=== PATIENT | female | born 1990 ===

== ENCOUNTER 2017-08-03 08:12 | Inpatient (IN) | payer BC ==
[2017-08-03] MEDS ORDERED: Oxytocin/Lactated Ringers 10 UNIT/1,000 ML BAG IV ONE (08:59)
[2017-08-03] MEDS ORDERED: Ondansetron 4 MG/2 ML SDV IVPUSH PRN (09:27)
[2017-08-03] MEDS ORDERED: Nalbuphine 20 MG/1 ML Amp IVPUSH PRN (09:27)
[2017-08-03] MEDS ORDERED: Sodium Chloride 0.9% 10 ML Syringe FLUSH PRN (09:27)
[2017-08-03] MEDS ORDERED: Oxytocin/Lactated Ringers 10 UNIT/1,000 ML BAG IV SCH ×2 (09:30)
[2017-08-03] MEDS ORDERED: Lactated Ringers 1,000 ML IV SCH ×2 (09:30)
[2017-08-03] MEDS ORDERED: fentaNYL 100 MCG/2 ML SDV EPIDUR PRN (10:11)
[2017-08-03] MEDS ORDERED: ePHEDrine 50 MG/ML SDV IVPUSH PRN (10:11)
[2017-08-03] MEDS ORDERED: diphenhydrAMINE 50 MG/ML SDV IVPUSH PRN (10:11)
[2017-08-03] MEDS ORDERED: Bupivacaine/fentaNYL/NS 100 ML Bag EPIDUR SCH (10:15)
--- NOTE | 2017-08-03 10:39 | PCM.LDHP ---
L&D History of Present Illness - General Date of Service: 08/03/17 Admit Problem/Dx: Patient Status Order with Admit Dx/Problem 08/03/17 09:28 Patient Status [ADT] Routine Admission Diagnosis/Problem Admission Diagnosis/Problem Supervision of normal Source of Information: Patient History Limitations: Reports: No Limitations - History of Present Illness Introduction:: Patient is a 26 y/o at 39 1/7 wks who presents for elective IOL. Patient doing well today. No patterned contraction. No signs of labor. No other concerns. - Related Data Allergies/Adverse Reactions: Allergies Allergy/AdvReac Type Severity Reaction Status Date / Time No Known Allergies Allergy Verified 08/03/17 08:53 Home Medications: Home Meds Vits #93/Iron Fum/FA [ Formula Tablet] 1 tab PO DAILY 08/03/17 [History] Past Medical History Genitourinary History: Reports: Renal Calculus Other Genitourinary History: hx of kidney stent placement for kidney stones [employer] History: Reports: : 3 Para: 2 LMP (Approximate): Psychiatric History: Reports: Anxiety Hematologic History: Reports: Other (See Below) (Heterozygous Factor V Leiden) - Past Surgical History Female Surgical History: Reports: Kidney stone extraction Social & Family History - Family History Family Medical History: Noncontributory - Tobacco Use Smoking Status *Q: Never Smoker Second Hand Smoke Exposure: No - Caffeine Use Caffeine Use: Reports: None - Alcohol Use Alcohol Use History: No - Recreational Drug Use Recreational Drug Use: No H&P Review of Systems - Review of Systems: Review Of Systems: See Below General: Reports: No Symptoms Pulmonary: Reports: No Symptoms Cardiovascular: Reports: No Symptoms Gastrointestinal: Reports: No Symptoms Genitourinary: Reports: No Symptoms Musculoskeletal: Reports: No Symptoms Psychiatric: Reports: No Symptoms Neurological: Reports: No Symptoms L&D Exam - Exam Exam: See Below - Vital Signs Weight: 77.973 kg - OB Specific Contraction Intensity: Irritability Movement: Active Heart Tones: Present Heart Rate (FHR) Variability: Moderate (6-25 bmp) Presentation: Vertex - Hou Score Hou Score Cervix Position: Posterior Hou Score Consistency: Soft Hou Score Effacement: 51-70% Hou Score Dilation: 1-2 cm Hou Score Infant's Station: -2 Hou Score Total: 6 - Exam General: Alert, Oriented, Cooperative Lungs: Clear to Auscultation, Normal Respiratory Effort Cardiovascular: Regular Rate, Regular Rhythm GI/Abdominal Exam: Soft, Non-Tender Genitourinary: Normal external exam Extremities: Normal Inspection - Patient Data Lab Results Last 24 hrs: Laboratory Results - last 24 hr 08/03/17 08/03/17 Range/Units 09:45 09:45 WBC 10.25 H (3.98-10.04) K/mm3 RBC 3.85 L (3.98-5.22) M/mm3 Hgb 11.5 (11.2-15.7) gm/L Hct 34.1 (34.1-44.9) % MCV 88.6 (79.4-94.8) fl MCH 29.9 (25.6-32.2) pg MCHC 33.7 (32.2-35.5) g/dl RDW Std Deviation 41.9 (36.4-46.3) fL Plt Count 194 (182-369) K/mm3 MPV 9.1 L (9.4-12.3) fl Blood Type O POSITIVE Gel Antibody Screen Negative Result Diagrams: 08/03/17 09:45 - Problem List (1) 39 weeks gestation of SNOMED Code(s): 99752167 ICD Code: Z3A.39 - 39 WEEKS GESTATION OF Status: Acute Current Visit: Yes (2) Heterozygous factor V Leiden affecting , antepartum SNOMED Code(s): 988429192 ICD Code: O99.119 - OTH DIS OF BLD/BLD-FORM ORG/IMMUN MECHNSM COMP PREG,UNSP TRI; D68.51 - ACTIVATED PROTEIN C RESISTANCE Status: Acute Current Visit: Yes Problem List Initiated/Reviewed/Updated: Yes Orders Last 24hrs: Active Orders 24 hr Category Date Time Status Patient Status [ADT] Routine ADT 08/03/17 09:28 Active Activity as Tolerated [RC] PFP Care 08/03/17 09:27 Active Communication Order [RC] ASDIRECTED Care 08/03/17 09:27 Active Communication Order [RC] ASDIRECTED Care 08/03/17 09:27 Active Communication Order [RC] ASDIRECTED Care 08/03/17 09:27 Active Communication Order [RC] ASDIRECTED Care 08/03/17 10:11 Active Cooling Warming Measures [RC] ASDIRECTED Care 08/03/17 10:11 Active Heart Tones [RC] ASDIRECTED Care 08/03/17 09:28 Active Monitoring [RC] INTERMITTENT Care 08/03/17 09:27 Active Notify Provider [RC] ASDIRECTED Care 08/03/17 09:27 Active Notify Provider [RC] ASDIRECTED Care 08/03/17 10:11 Active Notify Provider [RC] PFP Care 08/03/17 09:27 Active Notify Provider [RC] PRN Care 08/03/17 09:27 Active Oxygen Therapy [RC] ASDIRECTED Care 08/03/17 10:11 Active Peripheral IV Care [RC] . DIRECTED Care 08/03/17 09:28 Active Pulse Oximetry [RC] ASDIRECTED Care 08/03/17 10:11 Active Vaginal Exam [RC] ASDIRECTED Care 08/03/17 09:27 Active Verify Patient Consent Obtain [RC] ASDIRECTED Care 08/03/17 10:11 Active Vital Signs [RC] ASDIRECTED Care 08/03/17 09:27 Active Vital Signs [RC] PER UNIT ROUTINE Care 08/03/17 09:27 Active Vital Signs [RC] Q1H Care 08/03/17 10:11 Active Regular Diet [DIET] Diet 08/03/17 Breakfast Active PATIENT RETYPE [BBK] Routine Lab 08/03/17 09:45 Results TYPE AND SCREEN [BBK] Routine Lab 08/03/17 09:45 Results Bupivacaine/fentaNYL/NS [fentaNYL/Bupivacaine/NS 2 MCG- Med 08/03/17 10:15 Active 0.125% 100 ML] 100 ml EPIDUR ASDIRECTED Lactated Ringers [Ringers, Lactated] 1,000 ml Med 08/03/17 09:30 Active IV ASDIRECTED Lactated Ringers [Ringers, Lactated] 1,000 ml Med 08/03/17 09:30 Active IV ASDIRECTED Nalbuphine [Nubain] Med 08/03/17 09:27 Active 10 mg IVPUSH Q2H PRN Ondansetron [Zofran] Med 08/03/17 09:27 Active 4 mg IVPUSH Q4H PRN Oxytocin/Lactated Ringers [Pitocin in LR 10 Units/1,000 Med 08/03/17 09:30 Active ML] 10 unit in 1,000 ml IV .CONTINUOUS Oxytocin/Lactated Ringers [Pitocin in LR 10 Units/1,000 Med 08/03/17 09:30 Active ML] 10 unit in 1,000 ml IV TITRATE Sodium Chloride 0.9% [Saline Flush] Med 08/03/17 09:27 Active 10 ml FLUSH ASDIRECTED PRN diphenhydrAMINE [Benadryl] Med 08/03/17 10:11 Active 25 mg IVPUSH Q6H PRN ePHEDrine [ePHEDrine Sulfate] Med 08/03/17 10:11 Active 5 mg IVPUSH ASDIRECTED PRN fentaNYL [Sublimaze] Med 08/03/17 10:11 Active 100 mcg EPIDUR Q3H PRN Electronic Heart Tones Ext w TOCO [WOMSER] Oth 08/03/17 09:27 Ordered Routine Electronic Heart Tones Internal [WOMSER] Per Unit Ot 08/03/17 09:27 Ordered Routine Peripheral IV Insertion Adult [OM.PC] Routine Ot 08/03/17 09:27 Ordered Peripheral IV Insertion Adult [OM.PC] Routine Oth 08/03/17 09:27 Ordered Resuscitation Status Routine Resus Stat 08/03/17 09:27 Ordered Medication Orders Diphenhydramine HCl (Benadryl) 25 mg IVPUSH Q6H PRN PRN Reason: Itching Ephedrine Sulfate (Ephedrine Sulfate) 5 mg IVPUSH ASDIRECTED PRN PRN Reason: HYPOTENTSION Fentanyl (Sublimaze) 100 mcg EPIDUR Q3H PRN PRN Reason: PAIN Fentanyl/Bupivacaine HCl (Fentanyl/Bupivacaine/Ns 2 Mcg-0.125% 100 Ml) 100 ml EPIDUR ASDIRECTED MAHESH Lactated Ringer's (Ringers, Lactated) 1,000 mls @ 40 mls/hr IV ASDIRECTED MAHESH Lactated Ringer's (Ringers, Lactated) 1,000 mls @ 100 mls/hr IV ASDIRECTED MAHESH Oxytocin/Lactated Ringer's (Pitocin In Lr 10 Units/1,000 Ml) 10 unit in 1,000 mls @ 12 mls/hr IV TITRATE MAHESH; 2 MUNITS/MIN PRN Reason: Protocol Oxytocin/Lactated Ringer's (Pitocin In Lr 10 Units/1,000 Ml) 10 unit in 1,000 mls @ 500 mls/hr IV .CONTINUOUS MAHESH Nalbuphine HCl (Nubain) 10 mg IVPUSH Q2H PRN PRN Reason: Pain (moderate 4-6) Ondansetron HCl (Zofran) 4 mg IVPUSH Q4H PRN PRN Reason: Nausea/Vomiting Sodium Chloride (Saline Flush) 10 ml FLUSH ASDIRECTED PRN PRN Reason: Keep Vein Open Assessment/Plan Comment:: 26 y/o at 39 1/7 wks presents for IOL * CBC and T&S * GBS negative, no need for antibiotics * Plan for pitocin and AROM when able * Pain management per patient preference * Patient heterozygous Factor V without personal hx of clot. Has not been on anticoagulation during . May need to consider depending upon circumstances of delivery * Anticipate
--- NOTE | 2017-08-03 12:01 | PCM.PNLD ---
Labor Progress Note - VS & Meds Vital Signs: Last Vital Signs Temp 36.6 C 08/03/17 09:27 Pulse 92 08/03/17 10:44 Resp 16 08/03/17 09:27 BP 128/70 08/03/17 10:44 Pulse Ox 100 08/03/17 10:11 Active Medications: Current Medications Diphenhydramine HCl (Benadryl) 25 mg IVPUSH Q6H PRN PRN Reason: Itching Ephedrine Sulfate (Ephedrine Sulfate) 5 mg IVPUSH ASDIRECTED PRN PRN Reason: HYPOTENTSION Fentanyl (Sublimaze) 100 mcg EPIDUR Q3H PRN PRN Reason: PAIN Fentanyl/Bupivacaine HCl (Fentanyl/Bupivacaine/Ns 2 Mcg-0.125% 100 Ml) 100 ml EPIDUR ASDIRECTED MAHESH Lactated Ringer's (Ringers, Lactated) 1,000 mls @ 40 mls/hr IV ASDIRECTED MAHESH Lactated Ringer's (Ringers, Lactated) 1,000 mls @ 100 mls/hr IV ASDIRECTED MAHESH Last Admin: 08/03/17 09:20 Dose: 100 mls/hr Oxytocin/Lactated Ringer's (Pitocin In Lr 10 Units/1,000 Ml) 10 unit in 1,000 mls @ 12 mls/hr IV TITRATE MAHESH; 2 MUNITS/MIN PRN Reason: Protocol Last Titration: 08/03/17 11:22 Dose: 8 munits/min, 48 mls/hr Oxytocin/Lactated Ringer's (Pitocin In Lr 10 Units/1,000 Ml) 10 unit in 1,000 mls @ 500 mls/hr IV .CONTINUOUS MAHESH Nalbuphine HCl (Nubain) 10 mg IVPUSH Q2H PRN PRN Reason: Pain (moderate 4-6) Ondansetron HCl (Zofran) 4 mg IVPUSH Q4H PRN PRN Reason: Nausea/Vomiting Sodium Chloride (Saline Flush) 10 ml FLUSH ASDIRECTED PRN PRN Reason: Keep Vein Open Discontinued Medications Oxytocin/Lactated Ringer's (Pitocin In Lr 10 Units/1,000 Ml) Confirm Administered Dose 10 unit in 1,000 mls @ as directed IV .STK-MED ONE Stop: 08/03/17 09:00 Last Admin: 08/03/17 10:55 Dose: Not Given - Uterine Contractions Uterine Monitoring Mode: External [place] Contraction Intensity: Moderate - Monitoring Monitor Mode: External Ultrasound Heart Rate (FHR) Baseline: 140 Heart Rate (FHR) Variability: Moderate (6-25 bmp) Accelerations: Present, 15x15 Decelerations: None Strip Review: Category I - Vaginal Exam Dilation (cm): 3 Effacement (Percent): 75 Station: -2 Cervical Position: Posterior - Labor Progress (Free Text) Labor Progress: Patient doing well. On 8 of pitocin. Starting to feel contractions. AROM performed with release of scant amount of clear fluid. Continue present management
--- NOTE | 2017-08-03 13:38 | PCM.DEL ---
L & D Note - General Info Date of Service: 08/03/17 - Delivery Note Labor: Induced by ARM, Induced by Oxytocin Delivery Outcome: Livebirth Infant Delivery Method: Spontaneous Vaginal Delivery-Single Infant Delivery Mode: Spontaneous Presentation: Left Occiput Anterior (GURJIT) Nuchal Cord: Present Anesthesia Type: None Amniotic Fluid Description: Clear Episiotomy Type: None Laceration: None Placenta: Intact, Spontaneous Cord: 3 Vessels Estimated Blood Loss: 300 Resuscitation Needed: Yes : Suctioned, Bulb Syringe, Stimulated, Warmed, Freedom Used, Warmer Used Score 1 min: 6 Score 5 min: 9 Delivery Comments (Free Text/Narrative):: Patient went very quickly from 6 to complete. She began pushing and head delivered from GURJIT presentation. Nuchal cord present, but tight and not able to be reduced. With downward traction and McRobert's shoulders and body delivered. placed on maternal abdomen. Cord clamped and cut. Baby then taken to warmer. Cord blood obtained. Placenta allowed time to separate and expelled intact. Inspection of the perineum showed no lacerations. - Patient Data Vitals - Most Recent: Last Vital Signs Temp 36.6 C 08/03/17 09:27 Pulse 92 08/03/17 10:44 Resp 16 08/03/17 09:27 BP 128/70 08/03/17 10:44 Pulse Ox 100 08/03/17 10:11 Weight - Most Recent: 77.973 kg Lab Results Last 24 Hours: Laboratory Results - last 24 hr 08/03/17 08/03/17 Range/Units 09:45 09:45 WBC 10.25 H (3.98-10.04) K/mm3 RBC 3.85 L (3.98-5.22) M/mm3 Hgb 11.5 (11.2-15.7) gm/L Hct 34.1 (34.1-44.9) % MCV 88.6 (79.4-94.8) fl MCH 29.9 (25.6-32.2) pg MCHC 33.7 (32.2-35.5) g/dl RDW Std Deviation 41.9 (36.4-46.3) fL Plt Count 194 (182-369) K/mm3 MPV 9.1 L (9.4-12.3) fl Blood Type O POSITIVE Gel Antibody Screen Negative Med Orders - Current: Current Medications Diphenhydramine HCl (Benadryl) 25 mg IVPUSH Q6H PRN PRN Reason: Itching Ephedrine Sulfate (Ephedrine Sulfate) 5 mg IVPUSH ASDIRECTED PRN PRN Reason: HYPOTENTSION Fentanyl (Sublimaze) 100 mcg EPIDUR Q3H PRN PRN Reason: PAIN Fentanyl/Bupivacaine HCl (Fentanyl/Bupivacaine/Ns 2 Mcg-0.125% 100 Ml) 100 ml EPIDUR ASDIRECTED MAHESH Lactated Ringer's (Ringers, Lactated) 1,000 mls @ 40 mls/hr IV ASDIRECTED MAHESH Lactated Ringer's (Ringers, Lactated) 1,000 mls @ 100 mls/hr IV ASDIRECTED MAHESH Last Admin: 08/03/17 09:20 Dose: 100 mls/hr Oxytocin/Lactated Ringer's (Pitocin In Lr 10 Units/1,000 Ml) 10 unit in 1,000 mls @ 12 mls/hr IV TITRATE MAHESH; 2 MUNITS/MIN PRN Reason: Protocol Last Titration: 08/03/17 11:22 Dose: 8 munits/min, 48 mls/hr Oxytocin/Lactated Ringer's (Pitocin In Lr 10 Units/1,000 Ml) 10 unit in 1,000 mls @ 500 mls/hr IV .CONTINUOUS MAHESH Nalbuphine HCl (Nubain) 10 mg IVPUSH Q2H PRN PRN Reason: Pain (moderate 4-6) Ondansetron HCl (Zofran) 4 mg IVPUSH Q4H PRN PRN Reason: Nausea/Vomiting Sodium Chloride (Saline Flush) 10 ml FLUSH ASDIRECTED PRN PRN Reason: Keep Vein Open Discontinued Medications Oxytocin/Lactated Ringer's (Pitocin In Lr 10 Units/1,000 Ml) Confirm Administered Dose 10 unit in 1,000 mls @ as directed IV .STK-MED ONE Stop: 08/03/17 09:00 Last Admin: 08/03/17 10:55 Dose: Not Given - Problem List & Annotations (1) 39 weeks gestation of SNOMED Code(s): 33549667 Code(s): Z3A.39 - 39 WEEKS GESTATION OF Status: Acute Current Visit: Yes (2) Heterozygous factor V Leiden affecting , antepartum SNOMED Code(s): 108486246 Code(s): O99.119 - OTH DIS OF BLD/BLD-FORM ORG/IMMUN MECHNSM COMP PREG,UNSP TRI; D68.51 - ACTIVATED PROTEIN C RESISTANCE Status: Acute Current Visit: Yes (3) Vaginal delivery SNOMED Code(s): 577723412 Code(s): O80 - ENCOUNTER FOR FULL-TERM UNCOMPLICATED DELIVERY Status: Acute Current Visit: Yes - Problem List Review Problem List Initiated/Reviewed/Updated: Yes - My Orders Last 24 Hours: My Active Orders 08/03/17 09:27 Activity as Tolerated [RC] PFP Communication Order [RC] ASDIRECTED Communication Order [RC] ASDIRECTED Communication Order [RC] ASDIRECTED Monitoring [RC] INTERMITTENT Notify Provider [RC] ASDIRECTED Notify Provider [RC] PFP Notify Provider [RC] PRN Vaginal Exam [RC] ASDIRECTED Vital Signs [RC] ASDIRECTED Vital Signs [RC] PER UNIT ROUTINE Nalbuphine [Nubain] 10 mg IVPUSH Q2H PRN Ondansetron [Zofran] 4 mg IVPUSH Q4H PRN Sodium Chloride 0.9% [Saline Flush] 10 ml FLUSH ASDIRECTED PRN Electronic Heart Tones Ext w TOCO [WOMSER] Routine Electronic Heart Tones Internal [WOMSER] Per Unit Routine Peripheral IV Insertion Adult [OM.PC] Routine Peripheral IV Insertion Adult [OM.PC] Routine Resuscitation Status Routine 08/03/17 09:28 Patient Status [ADT] Routine Heart Tones [RC] ASDIRECTED Peripheral IV Care [RC] . DIRECTED 08/03/17 09:30 Lactated Ringers [Ringers, Lactated] 1,000 ml IV ASDIRECTED Lactated Ringers [Ringers, Lactated] 1,000 ml IV ASDIRECTED Oxytocin/Lactated Ringers [Pitocin in LR 10 Units/1,000 ML] 10 unit in 1,000 ml IV .CONTINUOUS Oxytocin/Lactated Ringers [Pitocin in LR 10 Units/1,000 ML] 10 unit in 1,000 ml IV TITRATE 08/03/17 09:45 PATIENT RETYPE [BBK] Routine TYPE AND SCREEN [BBK] Routine 08/03/17 13:33 Patient Status Manage Transfer [TRANSFER] Routine 08/03/17 Breakfast Regular Diet [DIET] - Assessment Assessment:: 26 y/o G3 now P2103 PPD#0 from at 39 1/7 wks - Plan Plan:: * Routine cares * Encourage breast feeding * Patient heterozygous Factor V without personal hx of clot. Has not been on anticoagulation during . Will continue to monitor * Discharge home in 1-2 days
[2017-08-03] MEDS ORDERED: Acetaminophen 325 MG Tab PO PRN (13:39)
[2017-08-03] MEDS ORDERED: Lanolin 100% Cream 7 GM Tube TOP PRN (13:39)
[2017-08-03] MEDS ORDERED: Benzocaine/Menthol 20%-0.5% Spray 56 GM Canister TOP PRN (13:39)
[2017-08-03] MEDS ORDERED: Docusate Sodium 100 MG Cap PO PRN (13:39)
[2017-08-03] MEDS ORDERED: Witch Hazel Medicated Pads 100/Jar TOP PRN (13:39)
[2017-08-03] MEDS: Ibuprofen 600 MG Tab PO PRN ×2 (14:05→20:03)
[2017-08-04] MEDS: Ibuprofen 600 MG Tab PO PRN ×2 (02:18→10:21)
--- NOTE | 2017-08-04 07:52 | PCM.PNPP ---
- General Info Date of Service: 08/04/17 Functional Status: Reports: Pain Controlled, Tolerating Diet, Ambulating, Urinating - Review of Systems General: Reports: No Symptoms Pulmonary: Reports: No Symptoms Cardiovascular: Reports: No Symptoms Gastrointestinal: Reports: No Symptoms Genitourinary: Reports: No Symptoms Musculoskeletal: Reports: No Symptoms Neurological: Reports: No Symptoms - Patient Data Vital Signs - Most Recent: Last Vital Signs Temp 36.4 C 08/04/17 04:03 Pulse 59 L 08/04/17 04:03 Resp 16 08/04/17 04:03 BP 111/57 L 08/04/17 04:03 Pulse Ox 100 08/04/17 04:03 Weight - Most Recent: 77.973 kg I&O - Last 24 Hours: Intake & Output 08/03/17 08/04/17 08/04/17 22:59 06:59 14:59 Intake Total 0 Balance 0 Lab Results - Last 24 Hours: Laboratory Results - last 24 hr 08/03/17 08/03/17 Range/Units 09:45 09:45 WBC 10.25 H (3.98-10.04) K/mm3 RBC 3.85 L (3.98-5.22) M/mm3 Hgb 11.5 (11.2-15.7) gm/L Hct 34.1 (34.1-44.9) % MCV 88.6 (79.4-94.8) fl MCH 29.9 (25.6-32.2) pg MCHC 33.7 (32.2-35.5) g/dl RDW Std Deviation 41.9 (36.4-46.3) fL Plt Count 194 (182-369) K/mm3 MPV 9.1 L (9.4-12.3) fl Blood Type O POSITIVE Gel Antibody Screen Negative Med Orders - Current: Current Medications Acetaminophen (Tylenol) 650 mg PO Q4H PRN PRN Reason: mild pain or fever Benzocaine/Menthol (Dermoplast Pain Relief [place]) 0 gm TOP ASDIRECTED PRN PRN Reason: Perineal Comfort Measure Last Admin: 08/03/17 14:04 Dose: 1 can Docusate Sodium (Colace) 100 mg PO BID PRN PRN Reason: Constipation Emollient Ointment (Lansinoh Hpa) 0 gm TOP ASDIRECTED PRN PRN Reason: Sore Nipples Ibuprofen (Motrin) 600 mg PO Q6H PRN PRN Reason: Mild pain or fever Last Admin: 08/04/17 02:18 Dose: 600 mg Witch Carolyn (Tucks) 1 pad TOP ASDIRECTED PRN PRN Reason: Hemorrhoid pain Last Admin: 08/03/17 14:04 Dose: 1 jar Discontinued Medications Diphenhydramine HCl (Benadryl) 25 mg IVPUSH Q6H PRN PRN Reason: Itching Ephedrine Sulfate (Ephedrine Sulfate) 5 mg IVPUSH ASDIRECTED PRN PRN Reason: HYPOTENTSION Fentanyl (Sublimaze) 100 mcg EPIDUR Q3H PRN PRN Reason: PAIN Fentanyl/Bupivacaine HCl (Fentanyl/Bupivacaine/Ns 2 Mcg-0.125% 100 Ml) 100 ml EPIDUR ASDIRECTED MAHESH Oxytocin/Lactated Ringer's (Pitocin In Lr 10 Units/1,000 Ml) Confirm Administered Dose 10 unit in 1,000 mls @ as directed IV .[facility] ONE Stop: 08/03/17 09:00 Last Admin: 08/03/17 10:55 Dose: Not Given Lactated Ringer's (Ringers, Lactated) 1,000 mls @ 40 mls/hr IV ASDIRECTED MAHESH Lactated Ringer's (Ringers, Lactated) 1,000 mls @ 100 mls/hr IV ASDIRECTED MAHESH Last Admin: 08/03/17 09:20 Dose: 100 mls/hr Oxytocin/Lactated Ringer's (Pitocin In Lr 10 Units/1,000 Ml) 10 unit in 1,000 mls @ 12 mls/hr IV TITRATE MAHESH; 2 MUNITS/MIN PRN Reason: Protocol Last Titration: 08/03/17 11:22 Dose: 8 munits/min, 48 mls/hr Oxytocin/Lactated Ringer's (Pitocin In Lr 10 Units/1,000 Ml) 10 unit in 1,000 mls @ 500 mls/hr IV .CONTINUOUS MAHESH Nalbuphine HCl (Nubain) 10 mg IVPUSH Q2H PRN PRN Reason: Pain (moderate 4-6) Ondansetron HCl (Zofran) 4 mg IVPUSH Q4H PRN PRN Reason: Nausea/Vomiting Sodium Chloride (Saline Flush) 10 ml FLUSH ASDIRECTED PRN PRN Reason: Keep Vein Open - Interaction Infant Disposition, : [place] in Room with Family Infant Interaction: Holding Infant Feeding: Breastfed ; Nursed Well Support Person: - Recovery Exam Fundal Tone: Firm Fundal Level: 1 Fingerbreadths Below Umbilicus Fundal Placement: Midline Lochia Amount: Small Lochia Color: Rubra/Red Perineum Description: Intact, Minimal Bruising/Swelling Episiotomy/Laceration: None Bladder Status: Voiding Urinary Elimination: Voided - Exam General: Alert, Oriented, Cooperative GI/Abdominal Exam: Soft, Non-Tender Extremities: Normal Inspection Skin: Warm, Dry, Intact - Problem List & Annotations (1) 39 weeks gestation of SNOMED Code(s): 04222566 Code(s): Z3A.39 - 39 WEEKS GESTATION OF Status: Acute Current Visit: Yes (2) Heterozygous factor V Leiden affecting , antepartum SNOMED Code(s): 874339221 Code(s): O99.119 - OTH DIS OF BLD/BLD-FORM ORG/IMMUN MECHNSM COMP PREG,UNSP TRI; D68.51 - ACTIVATED PROTEIN C RESISTANCE Status: Acute Current Visit: Yes (3) Vaginal delivery SNOMED Code(s): 602745413 Code(s): O80 - ENCOUNTER FOR FULL-TERM UNCOMPLICATED DELIVERY Status: Acute Current Visit: Yes - Problem List Review Problem List Initiated/Reviewed/Updated: Yes - My Orders Last 24 Hours: My Active Orders 08/03/17 09:27 Monitoring [RC] INTERMITTENT Vaginal Exam [RC] ASDIRECTED Vital Signs [RC] PER UNIT ROUTINE Resuscitation Status Routine 08/03/17 09:28 Heart Tones [RC] ASDIRECTED 08/03/17 13:39 Activity as Tolerated [RC] PER UNIT ROUTINE Vital Signs [RC] 12,20,04 Acetaminophen [Tylenol] 650 mg PO Q4H PRN Benzocaine/Menthol [Dermoplast Pain Relief [place]] See Dose Instructions TOP ASDIRECTED PRN Docusate Sodium [Colace] 100 mg PO BID PRN Ibuprofen [Motrin] 600 mg PO Q6H PRN Lanolin [Lansinoh HPA] See Dose Instructions TOP ASDIRECTED PRN Witch Carolyn [Tucks] 1 pad TOP ASDIRECTED PRN Assess Lochia [WOMSER] Per Unit Routine Assess Uterine Involution [WOMSER] Per Unit Routine Breast Pump [WOMSER] Per Unit Routine Ice Therapy [OM.PC] Per Unit Routine Perineal Care [OM.PC] Per Unit Routine Peripheral IV Discontinue [OM.PC] Routine Sitz Bath [OM.PC] Per Unit Routine 08/03/17 13:45 Heat Therapy [OM.PC] PRN 08/03/17 Dinner Regular Diet [DIET] 08/04/17 07:49 Ready for Discharge [RC] PER UNIT ROUTINE 08/04/17 13:45 Heat Therapy [OM.PC] PRN - Assessment Assessment:: 26 y/o G3 now P2103 PPD#1 from at 39 1/7 wks - Plan Plan:: * Routine cares * Encourage breast feeding * Patient heterozygous Factor V without personal hx of clot. Has not been on anticoagulation during . Will continue to monitor * Discharge home today per patient preference
--- NOTE | 2017-08-04 07:53 | PCM.DCSUM1 ---
Discharge Summary - Discharge Data Discharge Date: 08/04/17 Discharge Disposition: Home, Self-Care 01 Condition: Good - Discharge Diagnosis/Problem(s) (1) 39 weeks gestation of SNOMED Code(s): 64954537 ICD Code: Z3A.39 - 39 WEEKS GESTATION OF Status: Acute Current Visit: Yes (2) Heterozygous factor V Leiden affecting , antepartum SNOMED Code(s): 649009012 ICD Code: O99.119 - OTH DIS OF BLD/BLD-FORM ORG/IMMUN MECHNSM COMP PREG,UNSP TRI; D68.51 - ACTIVATED PROTEIN C RESISTANCE Status: Acute Current Visit: Yes (3) Vaginal delivery SNOMED Code(s): 673491868 ICD Code: O80 - ENCOUNTER FOR FULL-TERM UNCOMPLICATED DELIVERY Status: Acute Current Visit: Yes - Patient Summary/Data Complications: None Consults: None Recommended Follow-up Testing/Procedures: Follow up in 5-6 weeks for check Hospital Course: Patient is a 26 y/o who presented at 39 1/7 wks for planned IOL. This was done with pitocin and AROM. She made quick change to complete dilation and underwent an uncomplicated . See delivery note. she did well and was discharged home on PPD#1 - Patient Instructions Diet: Regular Diet as Tolerated Activity: As Tolerated Activity, Other: Pelvic Rest for 6 weeks Driving: May Drive Today Showering/Bathing: May Shower Showering/Bathing, Other: May bathe Notify Provider of: Fever, Increased Pain, Swelling and Redness, Drainage, Nausea and/or Vomiting - Discharge Plan Home Medications: Home Meds Ibuprofen [IJD: Ibuprofen] 600 mg PO Q6H PRN tablet 08/03/17 [Rx] Vits #93/Iron Fum/FA [ Formula Tablet] 1 tab PO DAILY 08/03/17 [History] Referrals: Joann Carrillo MD [Primary Care Provider] - (3-6 weeks for check ) - Discharge Summary/Plan Comment DC Time >30 min.: No - Patient Data Vitals - Most Recent: Last Vital Signs Temp 36.4 C 08/04/17 04:03 Pulse 59 L 08/04/17 04:03 Resp 16 08/04/17 04:03 BP 111/57 L 08/04/17 04:03 Pulse Ox 100 08/04/17 04:03 Weight - Most Recent: 77.973 kg I&O - Last 24 hours: Intake & Output 08/03/17 08/04/17 08/04/17 22:59 06:59 14:59 Intake Total 0 Balance 0 Lab Results - Last 24 hrs: Laboratory Results - last 24 hr 08/03/17 08/03/17 Range/Units 09:45 09:45 WBC 10.25 H (3.98-10.04) K/mm3 RBC 3.85 L (3.98-5.22) M/mm3 Hgb 11.5 (11.2-15.7) gm/L Hct 34.1 (34.1-44.9) % MCV 88.6 (79.4-94.8) fl MCH 29.9 (25.6-32.2) pg MCHC 33.7 (32.2-35.5) g/dl RDW Std Deviation 41.9 (36.4-46.3) fL Plt Count 194 (182-369) K/mm3 MPV 9.1 L (9.4-12.3) fl Blood Type O POSITIVE Gel Antibody Screen Negative Med Orders - Current: Current Medications Acetaminophen (Tylenol) 650 mg PO Q4H PRN PRN Reason: mild pain or fever Benzocaine/Menthol (Dermoplast Pain Relief [place]) 0 gm TOP ASDIRECTED PRN PRN Reason: Perineal Comfort Measure Last Admin: 08/03/17 14:04 Dose: 1 can Docusate Sodium (Colace) 100 mg PO BID PRN PRN Reason: Constipation Emollient Ointment (Lansinoh Hpa) 0 gm TOP ASDIRECTED PRN PRN Reason: Sore Nipples Ibuprofen (Motrin) 600 mg PO Q6H PRN PRN Reason: Mild pain or fever Last Admin: 08/04/17 02:18 Dose: 600 mg Witch Carolyn (Tucks) 1 pad TOP ASDIRECTED PRN PRN Reason: Hemorrhoid pain Last Admin: 08/03/17 14:04 Dose: 1 jar Discontinued Medications Diphenhydramine HCl (Benadryl) 25 mg IVPUSH Q6H PRN PRN Reason: Itching Ephedrine Sulfate (Ephedrine Sulfate) 5 mg IVPUSH ASDIRECTED PRN PRN Reason: HYPOTENTSION Fentanyl (Sublimaze) 100 mcg EPIDUR Q3H PRN PRN Reason: PAIN Fentanyl/Bupivacaine HCl (Fentanyl/Bupivacaine/Ns 2 Mcg-0.125% 100 Ml) 100 ml EPIDUR ASDIRECTED MAHESH Oxytocin/Lactated Ringer's (Pitocin In Lr 10 Units/1,000 Ml) Confirm Administered Dose 10 unit in 1,000 mls @ as directed IV .[facility] Stop: 08/03/17 09:00 Last Admin: 08/03/17 10:55 Dose: Not Given Lactated Ringer's (Ringers, Lactated) 1,000 mls @ 40 mls/hr IV ASDIRECTED MAHESH Lactated Ringer's (Ringers, Lactated) 1,000 mls @ 100 mls/hr IV ASDIRECTED MAHESH Last Admin: 08/03/17 09:20 Dose: 100 mls/hr Oxytocin/Lactated Ringer's (Pitocin In Lr 10 Units/1,000 Ml) 10 unit in 1,000 mls @ 12 mls/hr IV TITRATE MAHESH; 2 MUNITS/MIN PRN Reason: Protocol Last Titration: 08/03/17 11:22 Dose: 8 munits/min, 48 mls/hr Oxytocin/Lactated Ringer's (Pitocin In Lr 10 Units/1,000 Ml) 10 unit in 1,000 mls @ 500 mls/hr IV .CONTINUOUS MAHESH Nalbuphine HCl (Nubain) 10 mg IVPUSH Q2H PRN PRN Reason: Pain (moderate 4-6) Ondansetron HCl (Zofran) 4 mg IVPUSH Q4H PRN PRN Reason: Nausea/Vomiting Sodium Chloride (Saline Flush) 10 ml FLUSH ASDIRECTED PRN PRN Reason: Keep Vein Open *Q Meaningful Use (DIS) - VTE *Q VTE Criteria *Q: - Stroke *Q Stroke Criteria *Q: - AMI *Q AMI Criteria *Q:
== END 2017-08-04 14:15 | disposition home or self-care (01) | DRG 560 ==
LOC: JD.OB 08:12 → OBSVTOIN 13:13 → JD.OB 13:13
PROVIDERS: ADMIT Obstetrics & Gynecology; ATTEND Obstetrics & Gynecology
PROC: 10E0XZZ Delivery of Products of Conception, External Approach (ICD-10-PCS; principal; 2017-08-03)
PROC: 10907ZC Drainage of Amniotic Fluid, Therapeutic from Products of Conception, Via Natural or Artificial Opening (ICD-10-PCS; 2017-08-03)
DX: O99.12 Other diseases of the blood and blood-forming organs and certain disorders involving the immune mechanism complicating childbirth (principal); D68.51 Activated protein C resistance; O69.81X0 Labor and delivery complicated by cord around neck, without compression, not applicable or unspecified; Z3A.39 39 weeks gestation of pregnancy; Z37.0 Single live birth
CPT/HCPCS: 36415; 59409; 85027; 86850; 86900; 86901; A9270-GY; J2590; J7120